=== PATIENT | female | born 1975 | race Hispanic/Latino ===

== ENCOUNTER 2021-09-24 18:37 | Emergency (ER) | payer OTHER ==
[~2021-09-24] VITALS: Ht 157.5 cm; Wt 136.1 kg
[2021-09-24] MEDS ORDERED: CIPROFLOXACIN 500 MG TAB PO STA (19:04)
[2021-09-24] MEDS ORDERED: ONDANSETRON HCL 4 MG ORAL DISINTEGRATING TAB PO STA (19:04)
[2021-09-24] MEDS ORDERED: KETOROLAC TROMETHAMINE 60 MG/2 ML VIAL IM ONE (19:15)
[2021-09-24] MEDS ORDERED: TRAMADOL HCL 50 MG TAB PO STA (19:28)
[2021-09-24] MEDS ORDERED: ONDANSETRON ODT4 MG PO (19:49)
[2021-09-24] MEDS ORDERED: CIPRO500 MG PO (19:49)
== END 2021-09-24 20:09 | disposition home or self-care (01) ==
LOC: FSED 18:41
DX: N12 Tubulo-interstitial nephritis, not specified as acute or chronic (principal)
CPT/HCPCS: 81003; 99283; J1885; Q0162